=== PATIENT | female | born 1990 | race Caucasian/White ===

== ENCOUNTER 2017-04-30 11:56 | Emergency (ER) | payer OTHER ==
[2017-04-30 12:11] VITALS: BP 142/79
--- NOTE | 2017-04-30 12:43 | ED ---
Abdominal Pain/Female - HPI Summary HPI Summary: 26 yr old female with low abdominal pain, fever, Temp 100 earlier. Pain 5-6/10 , associated yellow discharge. She states she has complicated bowel history of inflammatory bowel disease. She has her doctors in [place]. She states she has a history of ovarian cysts as well, and last had negative hcg and also had US last month by her CHILD DEVELOPMENT SPECIALIST. She states she has not had sexual intercourse for 8 months. She also complains of loose stools with blood as well. - History of Current Complaint Chief Complaint: UCAbdominalPain Stated Complaint: ABDOMINAL PAIN Time Seen by Provider: 04/30/17 12:25 Hx Last Menstrual Period: 04/17/17 Allergies/Adverse Reactions: Allergies Allergy/AdvReac Type Severity Reaction Status Date / Time Gluten Meal Allergy GI Upset Verified 04/30/17 12:11 dairy Allergy GI Upset Uncoded 04/30/17 12:11 Home Medications: Home Medications clonazePAM TAB(*) [KlonoPIN TAB(*)] 0.5 mg PO BID PRN 04/30/17 [History Confirmed 04/30/17] PMH/Surg Hx/FS Hx/Imm Hx Respiratory History: Reports: Hx Asthma - Surgical History Surgery Procedure, Year, and Place: endoscopies Infectious Disease History: No Infectious Disease History: Denies: Traveled Outside the in Last 30 Days - Family History Known Family History: Positive: None - Social History Alcohol Use: Occasionally Substance Use Type: Reports: None Smoking Status (MU): Never Smoked Tobacco Review of Systems Positive: Fever, Chills Positive: Abdominal Pain, Diarrhea, Other - blood Positive: discharge. Negative: pain, urgency All Other Systems Reviewed And Are Negative: Yes Physical Exam Triage Information Reviewed: Yes Vital Signs On Initial Exam: Initial Vitals Temp Pulse Resp BP Pulse Ox 97.8 F 129 16 142/79 95 04/30/17 12:03 04/30/17 12:03 04/30/17 12:03 04/30/17 12:03 04/30/17 12:03 Vital Signs Reviewed: Yes Appearance: Positive: No Pain Distress. Negative: Ill-Appearing Skin: Positive: Warm, Skin Color Reflects Adequate Perfusion Head/Face: Positive: Normal Head/Face Inspection Eyes: Positive: EOMI ENT: Positive: Normal ENT inspection Neck: Positive: Nontender Respiratory/Lung Sounds: Positive: Clear to Auscultation, Breath Sounds Present Cardiovascular: Positive: Pulses are Symmetrical in both Upper and Lower Extremities, Tachycardia Abdomen Description: Positive: Other: - tender in low abdomen Musculoskeletal: Positive: Strength/ROM Intact Neurological: Positive: Sensory/Motor Intact, Alert, Oriented to Person Place, Time, CN Intact II-III, Normal Gait, Speech Normal Diagnostics - Vital Signs Vital Signs Temp Pulse Resp BP Pulse Ox 04/30/17 12:03 97.8 F 129 16 142/79 95 - Laboratory Lab Statement: Any lab studies that have been ordered have been reviewed, and results considered in the medical decision making process. Abdominal Pain Fem Course/Dx - Course Course Of Treatment: 26 yr old with abdominal pain, fever, loose stool with blood and yellow vaginal discharge with tachycardia. She signed out AMA and refused ALS transport given her tachycardia, blood in stool and fever. - Diagnoses Provider Diagnoses: Abdominal pain, Vaginal discharge, Fever, Tachycardia, Blood in stool Discharge - Discharge Plan Condition: Good Disposition: AGAINST MEDICAL ADVICE Referrals: No Primary Care Phys,NOPCP [Medical Doctor] -
== END 2017-04-30 12:43 | disposition left against medical advice (07) ==
LOC: UCCORT 11:56
DX: R10.30 Lower abdominal pain, unspecified (principal); N89.8 Other specified noninflammatory disorders of vagina; R50.9 Fever, unspecified; R00.0 Tachycardia, unspecified; K92.1 Melena
CPT/HCPCS: 99212; G0463

== ENCOUNTER 2023-11-22 16:57 | Observation (INO) ==
[2023-11-22 17:36] LABS: ABS Basophils 0.1 10^3/uL (0.0-0.1); ABS Lymphocytes 1.2 10^3/uL (1.0-4.8); ABS Monocytes 0.5 10^3/uL (0.0-0.9); ABS Neutrophils 6.5 10^3/uL (1.5-7.6); Eosinophil % 0.4 %; Hematocrit 45.8 % (35-45); Hemoglobin 15.5 g/dL (11.5-14.3); Lymphocyte % 14.3 %; Mean Corpuscular Hemoglobin 31.1 pg (27-33); Mean Corpuscular Hgb Conc 33.9 g/dL (31-36); Mean Corpuscular Volume 91.9 fL (80-97); Mean Platelet Volume 10.1 fL (7.5-11.2); Platelet Count 309 10^3/uL (150-450); Red Blood Count 4.99 10^6/uL (3.63-4.92); Red Cell Distribution Width 13.2 % (12-17); White Blood Count 8.4 10^3/uL (3.8-11.8)
[2023-11-22 17:53] LABS: Activated Partial Thrombo Time 30.6 seconds (26.0-38.0)
[2023-11-22] MEDS: Lactated Ringers 1000 ml BAG 1,000 ML IV ONE (17:54)
[2023-11-22 18:05] LABS: ALT 27 U/L (7-52); AST 32 U/L (13-39); Albumin 4.5 g/dL (3.2-5.2); Albumin/Globulin Ratio 1.9 (1-3); Alkaline Phosphatase 89 U/L (35-149); Anion Gap 12 mmol/L (2-16); Blood Urea Nitrogen 3 mg/dL (6-24); CO2 Carbon Dioxide 21 mmol/L (22-32); Calcium 9.6 mg/dL (8.6-10.3); Chloride 102 mmol/L (101-111); Cholesterol 182 mg/dL; Creatinine, Serum 0.57 mg/dL (0.51-0.95); Direct Bilirubin 0.1 mg/dL (0.03-0.18); Globulin 2.4 g/dL (2-4); Glucose 120 mg/dL (70-100); HDL Cholesterol 83.5 mg/dL; Indirect Bilirubin 0.6 mg/dL (0.3-1.0); LDL Cholesterol 80 mg/dL; Potassium 3.7 mmol/L (3.5-5.0); Sodium 135 mmol/L (135-145); Total Bilirubin 0.7 mg/dL (0.2-1.0); Total Protein 6.9 g/dL (6.4-8.9); Triglycerides 95 mg/dL; eGFR CKD-EPI 122.2 (>60)
[2023-11-22 18:24] LABS: Urine Appearance Clear; Urine Bilirubin Negative (Negative); Urine Blood Negative (Negative); Urine Color Colorless; Urine Glucose Negative (Negative); Urine Ketones Negative (Negative); Urine Nitrite Negative (Negative); Urine Protein Negative (Negative); Urine Specific Gravity 1.002 (1.002-1.030); Urine Urobilinogen Negative (Negative); Urine pH 6.5 (5.0-8.0)
[2023-11-22 18:35] LABS: Urine Bacteria Absent /HPF (Absent); Urine Red Blood Cell Trace(0-2/hpf) /HPF (0-Trace); Urine Squamous Epithelial Cell Present /HPF (Absent); Urine White Blood Cell Trace(0-5/hpf) /HPF (0-Trace)
[2023-11-22 18:46] LABS: HCG Pregnancy < 0.60 mIU/mL
[2023-11-22] MEDS: Ondansetron 4 mg VIAL 2 MG/ML 2 ml VIAL IV ONE (20:31)
[2023-11-22] MEDS: Gadoteridol (CONTRAST) 279.3 MG/ML 10 ML IV ONE (23:03)
[2023-11-23 09:58] LABS: High Sensitivity Troponin 1 Hr 9 pg/mL (<15)
[2023-11-23] MEDS: Sulfur Hexaflouride MICROSPHR 25 MG VIAL IV ONE (10:26)
[2023-11-23 14:08] VITALS: BP 126/94
== END 2023-11-23 16:24 | disposition home or self-care (01) ==
LOC: EDHOLD 16:57 → ED 16:57 → SUATTDRO 21:05 → EDHOLD 11-23 01:40 → MEDTELE 11-23 02:00
PROVIDERS: ADMIT Internal Medicine; ATTEND Internal Medicine

== ENCOUNTER 2024-03-28 18:37 | Observation (INO) ==
[2024-03-28 20:53] LABS: ABS Eosinophils 0.1 10^3/uL (0.0-0.5); ABS Lymphocytes 1.6 10^3/uL (1.0-4.8); ABS Monocytes 0.5 10^3/uL (0.0-0.9); ABS Neutrophils 3.2 10^3/uL (1.5-7.6); ABS Nucleated RBC 0.01 10^3/ul; Eosinophil % 2.5 %; Hematocrit 40.8 % (35-45); Hemoglobin 13.6 g/dL (11.5-14.3); Lymphocyte % 28.9 %; Mean Corpuscular Hemoglobin 31.7 pg (27-33); Mean Corpuscular Hgb Conc 33.4 g/dL (31-36); Mean Platelet Volume 10.4 fL (7.5-11.2); Nucleated Red Blood Cells % 0.2 %/100WBC (0.0-0.8); Platelet Count 224 10^3/uL (150-450); Red Blood Count 4.29 10^6/uL (3.63-4.92); Red Cell Distribution Width 15.6 % (12-17); White Blood Count 5.4 10^3/uL (3.8-11.8)
[2024-03-28 20:58] LABS: Urine Appearance Clear; Urine Bilirubin Negative (Negative); Urine Blood Negative (Negative); Urine Color Light-Yellow; Urine Glucose Negative (Negative); Urine Ketones Negative (Negative); Urine Nitrite Negative (Negative); Urine Protein Negative (Negative); Urine Specific Gravity 1.008 (1.002-1.030); Urine Urobilinogen Negative (Negative); Urine pH 7.5 (5.0-8.0)
[2024-03-28 21:08] LABS: Urine Bacteria 1+ /HPF (Absent); Urine Red Blood Cell Trace(0-2/hpf) /HPF (0-Trace); Urine Squamous Epithelial Cell Present /HPF (Absent); Urine White Blood Cell 2+(11-20/hpf) /HPF (0-Trace)
[2024-03-28 21:48] LABS: ALT 33 U/L (7-52); AST 36 U/L (13-39); Albumin 3.4 g/dL (3.2-5.2); Albumin/Globulin Ratio 1.9 (1-3); Alcohol, S < 13 mg/dL (<13); Alkaline Phosphatase 70 U/L (35-149); Anion Gap 7 mmol/L (2-16); Blood Urea Nitrogen 8 mg/dL (6-24); C Reactive Protein < 1.00 mg/L (<8.01); CO2 Carbon Dioxide 25 mmol/L (22-32); Calcium 8.6 mg/dL (8.6-10.3); Chloride 106 mmol/L (101-111); Creatinine, Serum 0.71 mg/dL (0.51-0.95); Globulin 1.8 g/dL (2-4); Glucose 102 mg/dL (70-100); Magnesium 1.7 mg/dL (1.9-2.7); Potassium 3.7 mmol/L (3.5-5.0); Sodium 138 mmol/L (135-145); Total Bilirubin 0.7 mg/dL (0.2-1.0); Total Protein 5.2 g/dL (6.4-8.9); eGFR CKD-EPI 114.4 (>60)
[2024-03-28 21:52] LABS: HCG Pregnancy < 0.60 mIU/mL
[2024-03-28] MEDS: Lactated Ringers 1000 ml BAG 1,000 ML IV ONE (23:25)
[2024-03-29 00:49] LABS: Vitamin B12 1249 pg/mL (180-914)
[2024-03-29] MEDS: Lactated Ringers 1000 ml BAG 1,000 ML IV SCH (01:11)
[2024-03-29] MEDS: Magnesium Sulfate 2 gm BAG 2 GM/50 ML BAG IVPB ONE (01:15)
[2024-03-29 01:18] LABS: Erythrocyte Sed Rate 0 mm/Hr (0-19)
[2024-03-29] MEDS: Magnesium Sulfate IV 1GM/100ML 1 GM/100 ML BAG IV ONE (02:51)
[2024-03-29] MEDS ORDERED: Albuterol HFA INHALER 8 gm MDI INH PRN (08:05)
[2024-03-30 07:30] LABS: ALT 26 U/L (7-52); Alkaline Phosphatase 52 U/L (35-149); Anion Gap 6 mmol/L (2-16); Blood Urea Nitrogen 6 mg/dL (6-24); CO2 Carbon Dioxide 22 mmol/L (22-32); Chloride 110 mmol/L (101-111); Creatinine, Serum 0.32 mg/dL (0.51-0.95); Globulin 1.5 g/dL (2-4); Glucose 85 mg/dL (70-100); Sodium 138 mmol/L (135-145); Total Protein 4.5 g/dL (6.4-8.9); eGFR CKD-EPI 140.5 (>60)
[2024-03-30 09:12] LABS: ABS Eosinophils 0.1 10^3/uL (0.0-0.5); ABS Lymphocytes 1.3 10^3/uL (1.0-4.8); ABS Monocytes 0.4 10^3/uL (0.0-0.9); ABS Neutrophils 1.9 10^3/uL (1.5-7.6); Eosinophil % 3.8 %; Hematocrit 36.3 % (35-45); Hemoglobin 12.3 g/dL (11.5-14.3); Lymphocyte % 33.8 %; Mean Corpuscular Hemoglobin 32.1 pg (27-33); Mean Corpuscular Hgb Conc 33.8 g/dL (31-36); Mean Corpuscular Volume 95.2 fL (80-97); Mean Platelet Volume 9.8 fL (7.5-11.2); Nucleated Red Blood Cells % 0.1 %/100WBC (0.0-0.8); Platelet Count 223 10^3/uL (150-450); Red Blood Count 3.82 10^6/uL (3.63-4.92); Red Cell Distribution Width 15.8 % (12-17); White Blood Count 3.8 10^3/uL (3.8-11.8)
[2024-03-30 09:36] LABS: Magnesium 1.7 mg/dL (1.9-2.7); Potassium Redraw 3.9 mmol/L (3.5-5.0)
[2024-03-30 10:24] VITALS: BP 121/88
[2024-03-30] MEDS: Magnesium Sulfate 2 gm BAG 2 GM/50 ML BAG IVPB ONE (12:04)
[2024-03-30] MEDS: Magnesium Sulfate IV 1GM/100ML 1 GM/100 ML BAG IV ONE (13:40)
== END 2024-03-30 17:42 | disposition home or self-care (01) ==
LOC: ED 18:37 → EDHOLD 18:37 → SUATTDRO 22:55 → MEDTELE 03-29 00:40
PROVIDERS: ADMIT Internal Medicine; ATTEND Internal Medicine